=== PATIENT | female | born 1970 | race Caucasian/White ===

== ENCOUNTER 2021-09-14 05:17 | Emergency (ER) | payer OTHER, SELFPAY ==
[2021-09-14 05:18] VITALS: BP 152/68; PULSE 87; RESP 16; TEMP 36.1; O2SAT 99; BMI 33.2
--- NOTE | 2021-09-14 06:05 | US_ITS ---
STUDY: ABDOMINAL ULTRASOUND - RIGHT UPPER QUADRANT REASON FOR VISIT: Female, 51 years old RUQ pain TECHNIQUE: Ultrasound evaluation of the right upper quadrant was performed with real-time and static adkins-scale imaging. TECHNICAL QUALITY: Adequate. COMPARISON: None. FINDINGS: Liver: The liver measures 13.3 cm. There is normal echogenicity of the liver. The bile ducts are within normal limits. There is hepatic color flow. The direction of portal flow is hepatopetal. There is no demonstrated mass lesion. Gallbladder: Normal distended gallbladder. The gallbladder wall measures 3 mm. There is a negative sonographic Melendez''s sign. There is no pericholecystic fluid. Scattered hyperechoic foci visualized along the wall and layering within the neck of the gallbladder consistent with stones, the largest of which measures 4 x 4 x 3 mm. Common Bile Duct (C.B.D.): The common bile duct measures 4 mm. Pancreas: Normal size of the head, body and tail of the pancreas. There is normal echogenicity of the pancreas. There is no demonstrated pancreatic mass or cyst. Right Kidney: Normal size of the right kidney. The right kidney measures 10.6 x 5.4 x 4.4 cm. Normal renal cortex. The right cortex measures 1.2 cm. There is no demonstrated renal mass or cyst. There is no right hydronephrosis. US/Gallbladder IMPRESSION: Subtle stones visualized in the neck of the gallbladder the largest of which measures 4 mm. Normal right upper quadrant ultrasound examination. Electronically Signed: Dennis Arteaga MD at 8:13 EST Tel , Service support ,
[2021-09-14 06:13] LABS: Mucous, Urine 0 SEEN /hpf (<or=2+); White Blood Cells 0 SEEN /hpf (0-5)
--- NOTE | 2021-09-14 06:13 | EX.ED.DYSGE1 ---
HPI History of Present Illness Chief Complaint: Abd Pain Narrative Narrative: Patient is a 51-year-old female who states that she was eating chocolate caramel and peanut butter covered popcorn last evening. She reports she went to bed and then woke up around 2 in the morning and has had intermittent spasms right upper quadrant midepigastric pain. She states when the pain comes on it drops her to her knees and makes her nauseous. She states that her family does have a history of gallbladder problems. She is concerned that this may be her gallbladder at this time and therefore comes in for evaluation [facility] Medical History no medical history Home Medications cephalexin 500 mg PO TID 7 Days #21 cap 09/14/21 [Rx Last Taken Unknown] Allergy/AdvReac Type Severity Reaction Status Date / Time No Known Allergies Allergy Verified 09/14/21 05:18 Social History Smoking Status: Never smoker ROS ROS ED Constitutional Constitutional ED: Denies chills or fever(s) ENT ENT ED: Denies sore throat Cardiovascular Cardiovascular: Denies chest pain Respiratory/Chest Respiratory/Chest: Denies cough or dyspnea Gastrointestinal Gastrointestinal: Reports abdominal pain and nausea; Denies diarrhea or vomiting Genitourinary Genitourinary ED: Denies dysuria Musculoskeletal Musculoskeletal: Denies back pain or myalgias Integumentary Denies rash Neurologic Neurologic: Denies headache(s) Hematologic/Lymphatic Hematologic/Lymphatic: Denies easy bleeding or easy bruising EXAM Physical Exam Const Vital Signs: 09/14/21 05:18 Temperature 97 F L Temperature Source Temporal Pulse Rate 87 Respiratory Rate 16 Blood Pressure 152/68 H Blood Pressure Mean 96 Pulse Ox 99 Oxygen Delivery Method Room Air Positive well nourished and well developed General Appearance ED: well developed HEENT Reports moist mucous membranes Eyes PERRL and EOMs intact bilaterally General Eye ED: Negative for scleral icterus Neck supple Resp normal respiratory effort and clear to auscultation bilaterally Cardio regular rate and regular rhythm Rate: other Other Details: Radial pulses are plus 2 out of 4 bilaterally are equal and symmetric GI non-distended GI Narrative: Patient has mild pain with palpation in the midepigastric and right upper quadrant without voluntary guarding or rigidity. Negative Melendez sign. No pulsatile mass Auscultation: normoactive bowel sounds Palpation: soft Extremity normal to inspection Neuro oriented x3 and CN's II-XII intact bilaterally Sensorium / Orientation: alert Motor Exam: strength 5/5 throughout Psych mental status grossly normal Skin no rashes or lesions noted General Skin Exam: Negative for jaundice MDM MDM MDM Narrative Medical decision making narrative: Patient presented to the ER afebrile with spontaneous resolution of her pain. Symptoms are most consistent with gallbladder dysfunction/biliary colic therefore elected perform basic laboratory studies as well as an ultrasound. Labs revealed no elevation to her liver enzymes and the urine does show +2 bacteria without contamination. Therefore at this time patient will be started on antibiotics secondary to the bacteria and urine be sent for culture. I feel that unless ultrasound revealed changes to suggest the gallbladder is infected the patient should be safe for discharge and can follow-up with general surgery for further evaluation Lab Data Attestation: I reviewed the patient's lab results. Labs: Laboratory Results - last 24 hr 09/14/21 09/14/21 09/14/21 05:36 05:36 05:50 WBC 12.8 H RBC 4.25 Hgb 12.4 Hct 39.3 MCV 92.5 MCH 29.2 MCHC 31.6 L RDW Std Deviation 46.5 H RDW Coeff of Natalie 13.7 Plt Count 251 MPV 11.3 Immature Gran % (Auto) 0.500 Neut % (Auto) 84.3 H Lymph % (Auto) 9.[address] [place] % (Auto) 5.2 Eos % (Auto) 0.3 Baso % (Auto) 0.3 Absolute Neuts (auto) 10.8 H Absolute Lymphs (auto) 1.20 Nucleated RBC % 0 Sodium 137 Potassium 3.6 Chloride 104 Carbon Dioxide 27.0 Anion Gap 6 BUN 14 Creatinine 0.80 Estim Creat Clear Calc 68.82 Est GFR (MDRD) Af Amer 97 Est GFR (MDRD) Non-Af 80 BUN/Creatinine Ratio 17.5 Glucose 122 H Calcium 8.7 Total Bilirubin 0.30 Direct Bilirubin 0.06 AST 57 H ALT 27 Alkaline Phosphatase 77 Total Protein 7.2 Albumin 3.1 L Globulin 4.1 Lipase 69 L Urine Color Yellow Urine Clarity Clear Urine pH 7.0 Ur Specific Ronan 1.015 Urine Protein 15 H Urine Glucose (UA) Normal Urine Ketones Negative Urine Occult Blood 50 H Urine Nitrite Negative Urine Bilirubin Negative Urine Urobilinogen Normal Ur Leukocyte Esterase 25 H Urine RBC 0-5 SEEN Urine WBC 0 SEEN Ur Squamous Epith Cells 0-5 SEEN Urine Bacteria 2+ Urine Mucus 0 SEEN Urine Test Negative Discharge Plan Triage Chief Complaint: Abd Pain ED Provider: Eulalio Sharma Dx/Rx/DC Orders Clinical Impression: Biliary colic, UTI (urinary tract infection) Instructions: What Are Gallstones, Cholecystectomy, Urinary Tract Infections in Women Prescriptions: New cephalexin 500 mg capsule 500 mg PO TID 7 Days Qty: 21 RF: 0 Primary Care Provider: Elba Waggoner,Out of Referrals: Radha Alexandra MD [STAFF PHYSICIAN] - 1-2 Weeks [facility] ,Out of [Primary Care Provider] -
[2021-09-14 06:16] LABS: Absolute Neutrophil Count 10.8 X10^3/uL (2.0-7.7); Basophil# 0.04 X10^3/uL; Basophil% 0.3 % (0-1); Eosinophil# 0.04 X10^3/uL; Eosinophils% 0.3 % (0-5); Hematocrit 39.3 % (37-47); Hemoglobin 12.4 g/dL (12.0-15.0); Lymphocyte % 9.4 % (19-41); Mean Corp Hgb Conc 31.6 g/dL (32-36); Mean Corpuscular Hgb 29.2 pg (27.0-32.0); Mean Corpuscular Volume 92.5 fL (81-99); Mean Platelet Vol. 11.3 fl (6.2-12.0); Monocyte# 0.66 X10^3/uL; Monocyte% 5.2 % (0-10); NRBC Flagged by Analyzer 0 % (0-5); Neutrophil # 10.75 X10^3/uL (2.7-7.7); Neutrophil % 84.3 % (47-70); Platelet Count 251 K/mm3 (150-450); RBC Distribution Width CV 13.7 % (11.6-14.6); RBC Distribution Width SD 46.5 fl (35.1-43.9); Red Blood Count 4.25 M/mm3 (4.2-5.4); White Blood Count 12.8 K/mm3 (4.4-11.0)
[2021-09-14 06:23] LABS: Color, Urine Yellow (Yellow); Glucose, Dipstick Normal (Normal); Ketone-Dipstick Negative (Negative); Leukocyte Esterase-Dipstick 25 /ul (Negative); Nitrite-Dipstick Negative (Negative); Occult Blood-Urine 50 /ul (Negative); Protein-Dipstick 15 mg/dl (Negative); Specific Gravity, Urine 1.015 (1.002-1.030); Urine Bilirubin Dipstick Negative (Negative); Urine Clarity Clear (Clear); Urine Urobilinogen Normal (Normal)
[2021-09-14 06:26] LABS: Internal QC Validated? YES +Cl - CLEAR BKGD; Pregnancy, Urine Negative Negative
[2021-09-14 06:31] LABS: Red Blood Cells-Urine 0-5 SEEN /hpf (0-5)
[2021-09-14 06:32] LABS: Bacteria 2+ /hpf (None Seen); Squamous Epithelial Cells - UA 0-5 SEEN /hpf (5-10)
[2021-09-14 06:51] LABS: AST(SGOT) 57 U/L (15-37); Alanine Aminotransfer ALT/SGPT 27 U/L (13-56); Albumin, Serum 3.1 g/dL (3.2-5.0); Alkaline Phosphatase 77 U/L (45-117); Anion Gap 6 (5-15); BUN 14 mg/dL (7-18); BUN/Creat Ratio 17.5 RATIO (10-20); Bilirubin, Direct 0.06 mg/dL (0.00-0.30); Calcium,Total 8.7 mg/dL (8.5-10.1); Chloride 104 mmol/L (98-107); EST Glomerular Filtration Rate 80 mL/min (>60); Est Glom Filt Rate - Afr Amer 97 mL/min (>60); Estimated Creatinine Clearance 68.82 ml/min; Globulin 4.1 g/dL (2.2-4.2); Glucose 122 mg/dL (74-106); Lipase 69 U/L (73-393); Potassium 3.6 mmol/L (3.5-5.1); Protein, Total 7.2 g/dL (6.4-8.2); Sodium Level 137 mmol/L (136-145)
[2021-09-14] MEDS: Ceftriaxone 1 GM/50 ML BAG IV (08:16)
== END 2021-09-14 09:03 | disposition home or self-care (01) ==
PROVIDERS: Emergency Medicine; Emergency Provider Emergency Medicine
DX: K80.50 Calculus of bile duct without cholangitis or cholecystitis without obstruction (principal); N39.0 Urinary tract infection, site not specified
CPT/HCPCS: 76705; 80048; 80076; 81001; 81025; 83690; 85025; 87086; 96365; 99283; J7050; A4216